=== PATIENT | female | born 1985 | race Caucasian/White ===

== ENCOUNTER → 2019-03-05 | Outpatient (CLI) | payer SELFPAY | LOC: LAB 13:04 | DX: N90.89 Other specified noninflammatory disorders of vulva and perineum (principal) ==

== ENCOUNTER 2019-04-10 09:19 | Emergency (ER) | payer SELFPAY ==
[~2019-04-10] VITALS: Ht 170.2 cm; Wt 109.1 kg
[2019-04-10] MEDS ORDERED: SYNTHROID0.075 MG PO (10:15)
[2019-04-10] MEDS ORDERED: ADVIL 200MG TA200 MG PO (10:15)
[2019-04-10 10:57] LABS: URINE APPEARANCE CLOUDY; URINE BILIRUBIN NEGATIVE (NEGATIVE); URINE BLOOD NEGATIVE (NEGATIVE); URINE COLOR YELLOW; URINE GLUCOSE NEGATIVE (NEGATIVE); URINE KETONE NEGATIVE (NEGATIVE); URINE LEUKOCYTE ESTERASE TRACE (NEGATIVE); URINE NITRATE NEGATIVE (NEGATIVE); URINE PROTEIN(semi-quant) 1+ mg/dL (NEGATIVE); URINE UROBILINOGEN NORMAL (NORMAL)
[2019-04-10 11:01] LABS: URINE MUCUS PRESENT (NOT PRESENT)
[2019-04-10] MEDS ORDERED: CIPRO500 M1 PO (11:14)
[2019-04-10] MEDS ORDERED: POLYMYXIN B/TRI10 ML OD (11:14)
[2019-04-10 11:26] VITALS: BP 129/49
== END 2019-04-10 11:27 | disposition home or self-care (01) ==
LOC: ED 09:19
PROVIDERS: Family Medicine
DX: S05.01XA Injury of conjunctiva and corneal abrasion without foreign body, right eye, initial encounter (principal); N39.0 Urinary tract infection, site not specified; H66.93 Otitis media, unspecified, bilateral; E03.9 Hypothyroidism, unspecified

== ENCOUNTER 2020-09-18 22:04 | Emergency (ER) | payer MEDICAID ==
[~2020-09-18 22:04] MED LIST: ADVIL 200MG TA200 MG PO; CIPRO500 M1 PO; POLYMYXIN B/TRI10 ML OD; SYNTHROID0.075 MG PO
[2020-09-19 01:26] VITALS: BP 118/76
== END 2020-09-19 01:26 | disposition home or self-care (01) ==
LOC: ED 22:04
DX: R13.10 Dysphagia, unspecified (principal); Z79.1 Long term (current) use of non-steroidal anti-inflammatories (NSAID); Z79.2 Long term (current) use of antibiotics

== ENCOUNTER 2021-04-11 11:13 | Emergency (ER) | payer MEDICAID ==
[2021-04-11 12:49] VITALS: BP 121/84
== END 2021-04-11 12:36 | disposition home or self-care (01) ==
LOC: ED 11:13
DX: U07.1 COVID-19 (principal)